=== PATIENT | female | born 1975 | race American Indian/Alaskan Native ===

== ENCOUNTER 2018-11-27 17:34 | Emergency (ER) | payer OTHER ==
--- NOTE | 2018-11-27 18:39 | Emergency Department Report ---
Blank Doc - Documentation Documentation: This is a 43-year-old female that presents with acute on chronic upper back pa in. This initial assessment/diagnostic orders/clinical plan/treatment(s) is/are subject to change based on patient's health status, clinical progression and re- assessment by fellow clinical providers in the ED. Further treatment and workup at subsequent clinical providers discretion. Patient/guardians urged not to elope from the ED as their condition may be serious if not clinically assessed a nd managed. Initial orders include: 1- Patient sent to [facility] for further evaluation and treatment
[2018-11-27] MEDS ORDERED: DECADRON IM ONE (21:58)
[2018-11-27] MEDS ORDERED: TORADOL IM ONE (21:58)
--- NOTE | 2018-11-27 22:29 | Emergency Department Report ---
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 who presents for acute on chronic low back pain and is followed tender in the bilateral lower extremities for the past 29 years patient deniesinjury or trauma does endorse frequent exacerbations of pain however has not seen PCP in 2 years patient denies weakness to his no paralysis is no numbness no tingling or loss or decrease in bowel or bladder function patient examined the night MD Complaint: back pain Onset/Timin -: year(s) Similar Symptoms Previously: Yes Place: home Radiation: left leg, right leg Severity: moderate Severity scale (0 -10): 5 Quality: aching Consistency: intermittent Improves With: none Worsens With: movement Context: while lifting, turning/twisting, bending Associated Symptoms: denies: numbness, difficulty urinating, incontinence, fever/chills - Related Data Previous Rx's Medication Instructions Recorded Last Taken Type Cyclobenzaprine [Flexeril] 10 mg PO TID PRN #30 tablet 11/27/18 Unknown Rx Menthol/Camphor [[place] 1 applicatio TP QID PRN #1 tube 11/27/18 Unknown Rx Ointment] Naproxen 500 mg PO BID PRN #30 tablet 11/27/18 Unknown Rx Allergies Allergy/AdvReac Type Severity Reaction Status Date / Time No Known Allergies Allergy Unverified 11/27/18 18:38 ED Review of Systems ROS: Stated complaint: BACK PAIN Other details as noted in HPI Constitutional: denies: chills, fever Eyes: denies: eye pain, eye discharge, vision change ENT: denies: ear pain, throat pain Respiratory: denies: cough, shortness of breath, wheezing Cardiovascular: denies: chest pain, palpitations Endocrine: no symptoms reported Gastrointestinal: denies: abdominal pain, nausea, diarrhea Genitourinary: denies: urgency, dysuria, discharge Musculoskeletal: arthralgia, myalgia. denies: back pain, joint swelling Skin: denies: rash, lesions Neurological: denies: headache, weakness, paresthesias Psychiatric: denies: anxiety, depression Hematological/Lymphatic: denies: easy bleeding, easy bruising ED Past Medical Hx - Past Medical History Previous Medical History?: No Additional medical history: chronic back pain - Surgical History Past Surgical History?: No - Social History Smoking Status: Never Smoker Substance Use Type: None - Medications Home Medications: Home Medications Medication Instructions Recorded Confirmed Last Taken Type Cyclobenzaprine [Flexeril] 10 mg PO TID PRN #30 tablet 11/27/18 Unknown Rx Menthol/Camphor [[place] 1 applicatio TP QID PRN #1 tube 11/27/18 Unknown Rx Ointment] Naproxen 500 mg PO BID PRN #30 tablet 11/27/18 Unknown Rx ED Physical Exam - General Limitations: No Limitations General appearance: alert, in no apparent distress - Head Head exam: Present: atraumatic, normocephalic - Eye Eye exam: Present: normal appearance, PERRL, EOMI Pupils: Present: normal accommodation - ENT ENT exam: Present: mucous membranes moist - Neck Neck exam: Present: normal inspection, full ROM. Absent: tenderness, meningismus (:1), lymphadenopathy, thyromegaly - Respiratory Respiratory exam: Present: normal lung sounds bilaterally. Absent: respiratory distress, wheezes, stridor, chest wall tenderness - Cardiovascular Cardiovascular Exam: Present: regular rate, normal rhythm, normal heart sounds. Absent: systolic murmur, diastolic murmur, rubs, gallop - GI/Abdominal GI/Abdominal exam: Present: soft, normal bowel sounds. Absent: tenderness, rebound, bruit, hernia - Rectal Rectal exam: Present: deferred - Extremities Exam Extremities exam: Present: normal inspection - Back Exam Back exam: Present: normal inspection, full ROM, tenderness, muscle spasm, paraspinal tenderness. Absent: CVA tenderness (R), CVA tenderness (L), vertebral tenderness (there is no posterial vertebral point tenderenss pos straight leg bilat ), rash noted - Expanded Back Exam Expanded Back exam: Absent: saddle anesthesia Back exam: Positive Straight Leg Raise: Left, Right - Neurological Exam Neurological exam: Present: alert, oriented X3, CN II-XII intact, normal gait, reflexes normal - Psychiatric Psychiatric exam: Present: normal affect, normal mood - Skin Skin exam: Present: warm, dry, intact, normal color. Absent: rash ED Course Vital Signs 11/27/18 18:35 Temperature 98.1 F Pulse Rate 73 Respiratory 18 Rate Blood Pressure 150/89 O2 Sat by Pulse 100 Oximetry ED Medical Decision Making - Medical Decision Making this is chronic back pain plan nsaids muscle relaxants, short burst steroids follow up with pcp in 2-3 days given referral to [facility] in 2-3 days pt verbalized agreement and understanding of same. pt is currently a/o x 3 ambulatory with steady gait at this time. Critical care attestation.: If time is entered above; I have spent that time in minutes in the direct care of this critically ill patient, excluding procedure time. ED Disposition Clinical Impression: Chronic low back pain Qualifiers: Back pain laterality: bilateral Sciatica presence: with sciatica Sciatica laterality: bilateral sciatica Qualified Code(s): M54.42 - Lumbago with sciatica, left side; M54.41 - Lumbago with sciatica, right side; G89.29 - Other chronic pain Disposition: TO HOME OR SELFCARE Is pt being admited?: No Does the pt Need Aspirin: No Condition: Stable Instructions: Chronic Back Pain (ED) Prescriptions: Cyclobenzaprine [Flexeril] 10 mg PO TID PRN #30 tablet PRN Reason: Muscle Spasm Naproxen 500 mg PO BID PRN #30 tablet PRN Reason: pain Menthol/Camphor [[place] Ointment] 1 applicatio TP QID PRN #1 tube PRN Reason: pain Referrals: SANJUANITA CHAMORRO MD [Staff Physician] - 3-5 Days Forms: Work/School Release Form(ED) Time of Disposition: 22:42
[2018-11-27 22:52] VITALS: BP 151/90
== END 2018-11-27 22:53 | disposition home or self-care (01) ==
LOC: ED 17:34
DX: M54.42 Lumbago with sciatica, left side (principal); M54.41 Lumbago with sciatica, right side
CPT/HCPCS: 96372; 99282; J1100; J1885

== ENCOUNTER 2018-12-19 15:47 | Outpatient (CLI) | payer OTHER ==
--- NOTE | 2018-12-19 22:40 | XRay Report ---
PROCEDURE: XR SPINE CERVICAL 4-5V TECHNIQUE: 5 views obtained of the cervical spine HISTORY: CERVICALGIA, CERVICALGIA SPINE W/ OBLIQUES COMPARISONS: No priors FINDINGS: Degenerative changes of the cervical spine with mild narrowing of the C6-C7 intervertebral disc space . Anterior osteophytes. Alignment is anatomic. There is no evidence of neural foraminal narrowing. Open-mouth view of the odontoid within normal limits. IMPRESSION: . Degenerative changes of the cervical spine with mild narrowing of the C6-C7 intervertebral disc spa cherelle. No neural foraminal narrowing. This document is electronically signed by Elgin Guevara MD., December 19 2018 10:38:44 PM ET
--- NOTE | 2018-12-19 22:42 | XRay Report ---
PROCEDURE: XR SPINE LUMBOSACRAL 4+V TECHNIQUE: 4 views of the lumbar spine HISTORY: LOW BACK SPINE, LUMBAR COMPLETE COMPARISONS: No priors FINDINGS: Degenerative changes of the lumbar spine with multilevel vertebral endplate bony spurring. No compression deformity. No spondylolisthesis. Intervertebral disc spaces are preserved. No spondylolysis. IMPRESSION: Minimal degenerative changes of the lumbar spine with preservation of intervertebral disc spaces.. This document is electronically signed by Elgin Guevara MD., December 19 2018 10:40:11 PM ET
== END 2018-12-19 15:48 | disposition home or self-care (01) ==
LOC: XRAY 15:47
PROVIDERS: ATTEND Orthopaedic Surgery
DX: M47.812 Spondylosis without myelopathy or radiculopathy, cervical region (principal); M47.816 Spondylosis without myelopathy or radiculopathy, lumbar region; M48.02 Spinal stenosis, cervical region
CPT/HCPCS: 72050; 72110